=== PATIENT | male | born 1965 | race American Indian/Alaskan Native ===

== ENCOUNTER 2017-07-11 20:15 | Emergency (ER) | payer SELFPAY ==
[2017-07-11] MEDS ORDERED: NACL 0.9% 1000 ML 1,000 ML IV ONE (20:55)
--- NOTE | 2017-07-11 21:01 | Emergency Department Report ---
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 Patient denied any loss of consciousness no other injury. MD Complaint: alcohol intoxication Last Drink: just [employer] Chronic Alcohol Use: Yes Previous Visits for Alcohol Intoxication?: Yes Associated Symptoms: denies other symptoms - Related Data Home Medications Medication Instructions Recorded Confirmed Last Taken Unobtainable 07/11/17 07/11/17 Unknown Allergies Allergy/AdvReac Type Severity Reaction Status Date / Time No Known Allergies Allergy Verified 07/12/17 00:00 ED Review of Systems ROS: Stated complaint: FALL Other details as noted in HPI Comment: All other systems reviewed and negative Constitutional: denies: chills, fever ENT: denies: throat pain, dental pain Respiratory: denies: orthopnea, shortness of breath, SOB with exertion Cardiovascular: denies: chest pain, palpitations, dyspnea on exertion Gastrointestinal: denies: abdominal pain, nausea, vomiting, diarrhea, constipation Genitourinary: denies: urgency, frequency, hematuria Skin: denies: rash, lesions, change in color Neurological: denies: headache, weakness, numbness, paresthesias Psychiatric: denies: auditory hallucinations, visual hallucinations, homicidal thoughts, suicidal thoughts ED Past Medical Hx - Medications Home Medications: Home Medications Medication Instructions Recorded Confirmed Last Taken Type Unobtainable 07/11/17 07/11/17 Unknown History ED Physical Exam - General Limitations: Altered Mental Status General appearance: alert, appears intoxicated - Head Head exam: Present: other (3 cm laceration right mandible) - Eye Eye exam: Present: normal appearance Pupils: Present: normal accommodation - ENT ENT exam: Present: normal exam - Neck Neck exam: Present: normal inspection - Respiratory Respiratory exam: Present: normal lung sounds bilaterally. Absent: respiratory distress, wheezes, rales - Cardiovascular Cardiovascular Exam: Present: regular rate, normal rhythm, normal heart sounds - GI/Abdominal GI/Abdominal exam: Present: soft. Absent: distended, tenderness, guarding, rebound, mass, bruit, pulsatile mass - Back Exam Back exam: Present: normal inspection. Absent: CVA tenderness (R), CVA tenderness (L) - Neurological Exam Neurological exam: Present: alert, oriented X3, CN II-XII intact - Skin Skin exam: Present: warm ED Course Vital Signs 07/11/17 07/11/17 07/11/17 20:50 22:19 22:46 Temperature 98.5 F Pulse Rate 76 66 Respiratory 18 16 Rate Blood Pressure 150/114 Blood Pressure 138/97 [Left] O2 Sat by Pulse 98 100 100 Oximetry - Laceration /Wound Repair Jaw Wound Location: head Wound Length (cm): 3 Wound's Depth, Shape: linear Wound Explored: clean Irrigated w/ Saline (ccs): 50 Betadine Prep?: Yes Anesthesia: 1% Lidocaine Volume Anesthetic (ccs): 3 Suture Size/Type: 5:0 Layer Closure?: No Sterile Dressing Applied?: Yes Progress: Patient tolerated the procedure well no complication ED Medical Decision Making - Lab Data Result diagrams: 07/11/17 21:02 07/11/17 21:02 Critical care attestation.: If time is entered above; I have spent that time in minutes in the direct care of this critically ill patient, excluding procedure time. ED Disposition Clinical Impression: Alcohol intoxication, Laceration of jaw, right Disposition: DC-01 TO HOME OR SELFCARE Is pt being admited?: No Condition: Stable Instructions: Suture Care (ED), Alcohol Intoxication (ED) Referrals: PRIMARY CARE, [Primary Care Provider] - 3-5 Days
[2017-07-11 21:20] LABS: Eosinophils % (Auto) 1.1 % (0.0-4.3); Hematocrit 43.2 % (35.5-45.6); Hemoglobin 14.3 gm/dl (11.8-15.2); Mean Corpuscular HGB Conc 33 % (32-34); Mean Corpuscular Hemoglobin 33 pg (28-32); Mean Corpuscular Volume 100 fl (84-94); Platelet Count 203 K/mm3 (140-440); Red Blood Count 4.32 M/mm3 (3.65-5.03); Red Cell Distribution Width 13.2 % (13.2-15.2); White Blood Count 7.1 K/mm3 (4.5-11.0)
[2017-07-11 21:41] LABS: Albumin 3.9 g/dL (3.9-5); Albumin/Globulin Ratio 1.1 %; Alkaline Phosphatase 92 units/L (35-129); BUN/Creatinine Ratio 14.28; Blood Urea Nitrogen 10 mg/dL (9-20); Calcium 8.5 mg/dL (8.4-10.2); Carbon Dioxide 21 mmol/L (22-30); Chloride 103.1 mmol/L (98-107); Glucose 87 mg/dL (75-100); Sodium 140 mmol/L (137-145); Total Protein 7.3 g/dL (6.3-8.2)
[2017-07-11 21:42] LABS: Alanine Aminotransferase 8 units/L (7-56); Anion Gap 20 mmol/L; Potassium 4.1 mmol/L (3.6-5.0)
--- NOTE | 2017-07-11 21:51 | Cat Scan Report ---
FINAL REPORT EXAM: CT HEAD/BRAIN WO CON HISTORY: Alcohol Intoxication COMPARISON: None available. TECHNIQUE: Contiguous axial images were obtained. FINDINGS: No acute intracranial hemorrhage or midline shift. Remote surgical changes of left frontal, parietal, temporal craniectomy with cranioplasty in place. Focal volume loss of the left temporal lobe which may relate to prior ischemia or traumatic insult. Focal volume loss of the posterior superior margin left frontal lobe. Diffuse dural thickening along the craniectomy site focal volume loss right frontal lobe measuring 3.0 x 2.9 centimeters which communicates with the right lateral ventricle. This is also concerning for posttraumatic versus post ischemic encephalomalacia. No definite acute infarct on today's exam. Mild mucosal thickening the paranasal sinuses. Mastoid air cells are clear. Orbits are grossly unremarkable. IMPRESSION: No gross acute intracranial abnormality. Areas of volume loss involving the left temporal lobe, and bilateral frontal lobes which may relate to prior ischemia or traumatic insult. Prior left frontal, parietal, temporal craniectomy with cranioplasty.
--- NOTE | 2017-07-11 21:52 | Cat Scan Report ---
FINAL REPORT EXAM: CT CERVICAL SPINE WO CON HISTORY: Alcohol Intoxication COMPARISON: None available. TECHNIQUE: Axial images obtained through the cervical spine. Additional sagittal and coronal reformatted images were obtained. FINDINGS: Straightening of the normal lordotic curvature of the cervical spine. Cervical vertebral body heights are preserved. No acute fracture or traumatic subluxation. Odontoid process, articular pillars and occipital condyles are intact. Moderate loss of disc height C5-C6 level. Mild canal stenosis C3-C4 through C5-C6 level due to mild broad-based disc bulges. No significant bony encroachment on the foramen. Prominent bulla at the lung apices. IMPRESSION: No acute fracture or subluxation of the cervical spine. There is straightening of the normal lordotic curvature which may relate to patient positioning or muscle spasm. Mild degenerative changes.
[2017-07-11] MEDS ORDERED: XYLOCAINE 1% MPF 5 mL ONE (23:56)
[2017-07-12] MEDS ORDERED: XYLOCAINE 2% INFILTRATI ONE (01:20)
[2017-07-12 10:20] VITALS: BP 161/100
== END 2017-07-12 10:19 | disposition home or self-care (01) ==
LOC: EEVIPCON 20:15 → ED 20:15
DX: S01.81XA Laceration without foreign body of other part of head, initial encounter (principal); F10.129 Alcohol abuse with intoxication, unspecified; W19.XXXA Unspecified fall, initial encounter; Y93.89 Activity, other specified; Y92.89 Other specified places as the place of occurrence of the external cause; Y99.8 Other external cause status
CPT/HCPCS: 12013; 36415; 70450; 72125; 80053; 85025; 96360; 99284; G0480; J7030; 80320